=== PATIENT | female | born 1995 | race Two or more races ===

== ENCOUNTER 2017-10-13 19:04 | Emergency (ER) | payer OTHER ==
[2017-10-13 19:11] VITALS: RESP 16; TEMP 98.1
[2017-10-13 19:47] LABS: % IMMATURE GRANULYOCYTES 0.3 % (0.0-1.1); ABSOLUTE IMMATURE GRANULOCYTES 0.02 10^3/uL (0.00-0.10); ADD DIFF? NO; ADD MORPH? NO; ADD SCAN? NO; ATYPICAL LYMPHOCYTE FLAG 0 (0-99); FRAGMENT RBC FLAG 0 (0-99); HEMATOCRIT 38.7 % (38.0-47.0); HEMOGLOBIN 13.1 g/dL (12.6-16.3); LEFT SHIFT FLG 0 (0-99); LIPEMIA HEMOLYSIS FLAG 90 (0-99); MEAN CELL HEMOGLOBIN 27.9 pg (27.9-34.1); MEAN CELL HEMOGLOBIN CONCENTR. 33.9 g/dL (32.4-36.7); MEAN CELL VOLUME 82.3 fL (81.5-99.8); MEAN PLATELET VOLUME 9.7 fL (8.7-11.7); PLATELET CLUMPS FLAG 0 (0-99); PLATELET COUNT 386 10^3/uL (150-400); RED CELL DISTRIBUTION WIDTH 12.8 % (11.5-15.2)
[2017-10-13 20:00] LABS: ANION GAP 11 mEq/L (8-16); CALCIUM 9.8 mg/dL (8.5-10.4); CARBON DIOXIDE 24 mEq/l (22-31); CHLORIDE 103 mEq/L (97-110); CREATININE 0.7 mg/dL (0.6-1.0); GLOMERULAR FILTRATION RATE > 60; GLUCOSE 77 mg/dL (70-100); SODIUM 138 mEq/L (134-144)
[2017-10-13 20:10] LABS: COLOR YELLOW; LEUKOCYTE ESTERASE,URINE NEGATIVE (NEGATIVE); NITRITE,URINE NEGATIVE (NEGATIVE)
[2017-10-13 20:16] LABS: BACTERIA 1+ /hpf (NONE SEEN); MUCUS 3+ /lpf (NONE-1+)
--- NOTE | 2017-10-13 20:20 | EDPHY ---
H & P Stated Complaint: low back and low abd pain x 1 week, taking otc pain meds Time Seen by Provider: 10/13/17 19:16 HPI/ROS: Chief complaint: Low back pain History of present illness: 22-year-old female presents to the emergency department for low back pain. She reports she has had problems with low back pain for a number of years. Symptoms wax and wane in intensity. She has seen doctors previously and has been told that it was once her muscles and once a urinary tract infection. She states current pain and 4-5 days ago. She states she bent over and picked up a heavy bag. After than pain progressively worsened. Pain radiates towards the front of the abdomen. Worse with movement , better with rest. Denies associated signs or symptoms including no fevers, no urinary symptoms, no constipation diarrhea, no abnormal vaginal discomfort discharge, no neurologic symptoms such as saddle anesthesia, paresthesias, weakness or paralysis or bowel or bladder dysfunction. - Personal History LMP (Females 10-55): 1-7 Days Ago Current Tetanus Diphtheria and Acellular Pertussis (TDAP): Yes - Medical/Surgical History Other PMH: denies - Social History Smoking Status: Never smoked - Physical Exam Exam: General Appearance: Alert, nontoxic. Eyes: Pupils equal and round no injection. Respiratory: Chest is non tender, lungs are clear to auscultation. Cardiac: regular rate and rhythm Gastrointestinal: Abdomen is soft and non tender, no masses, bowel sounds normal. Musculoskeletal: Neck is supple and non tender. The spine is nontender to palpation along its entire length. No crepitus or bony deformity. Mild tenderness over the right lower lumbar paraspinal muscles. Extremities have full range of motion and are non tender. Skin: No rashes or lesions. Constitutional: Initial Vital Signs Temperature (C) 36.7 C 10/13/17 19:09 Heart Rate 94 10/13/17 19:09 Respiratory Rate 16 10/13/17 19:09 Blood Pressure 102/69 10/13/17 19:09 O2 Sat (%) 97 10/13/17 19:09 O2 Delivery Mode Room Air Allergies/Adverse Reactions: No Known Allergies Allergy (Unverified 10/13/17 19:07) Home Medications: Medication Instructions Recorded NK [No Known Home Meds] 10/13/17 Medical Decision Making ED Course/Re-evaluation: Patient seen under the supervision of my primary supervising physician Dr. Shy Mohr. Patient presents to the emergency department for low back pain radiating to her abdomen. She is nontoxic. Physical exam does reveal reproducible pain over the low back. Nonfocal neurologic exam. Blood studies unremarkable. Urinalysis likely contaminant, culture sent before starting antibiotics. I do believe this is a musculoskeletal problem given the nature with which it began and reproducible pain. I do not believe red flag risk factors exist at this time to suggest more significant pathology. Patient discharged home. Home care is discussed. Return precautions are given. Patient voiced understanding and agreement with plan. Differential Diagnosis: Included but not limited to lumbar sprain or strain, herniated intervertebral disc, urinary tract disease including stone or infection, unlikely cauda equina syndrome or spinal cord lesion - Data Points Laboratory Results: Laboratory Results 10/13/17 19:35 10/13/17 19:35 10/13/17 10/13/17 10/13/17 19:52 19:35 19:35 WBC RBC Hgb Hct MCV MCH MCHC RDW Plt Count MPV Neut % (Auto) Lymph % (Auto) Lane % (Auto) Eos % (Auto) Baso % (Auto) Nucleat RBC Rel Count Absolute Neuts (auto) Absolute Lymphs (auto) Absolute Monos (auto) Absolute Eos (auto) Absolute Basos (auto) Absolute Nucleated RBC Immature Gran % Immature Gran # Sodium 138 mEq/L mEq/L (134-144) Potassium 4.0 mEq/L mEq/L (3.5-5.2) Chloride 103 mEq/L mEq/L (97-110) Carbon Dioxide 24 mEq/l mEq/l (22-31) Anion Gap 11 mEq/L mEq/L (8-16) BUN 13 mg/dL mg/dL (7-23) Creatinine 0.7 mg/dL mg/dL (0.6-1.0) Estimated GFR > 60 Glucose 77 mg/dL mg/dL (70-100) Calcium 9.8 mg/dL mg/dL (8.5-10.4) Beta HCG, Qual NEGATIVE Urine Color YELLOW Urine Appearance HAZY Urine pH 5.0 (5.0-7.5) Ur Specific [place] 1.024 (1.002-1.030) Urine Protein NEGATIVE (NEGATIVE) Urine Ketones TRACE H (NEGATIVE) Urine Blood NEGATIVE (NEGATIVE) Urine Nitrate NEGATIVE (NEGATIVE) Urine Bilirubin NEGATIVE (NEGATIVE) Urine Urobilinogen NEGATIVE EU EU (0.2-1.0) Ur Leukocyte Esterase NEGATIVE (NEGATIVE) Urine RBC 1-3 /hpf /hpf (0-3) Urine WBC 3-5 /hpf H /hpf (0-3) Ur Epithelial Cells TRACE /lpf /lpf (NONE-1+) Urine Bacteria 1+ /hpf H /hpf (NONE SEEN) Urine Mucus 3+ /lpf H /lpf (NONE-1+) Urine Glucose NEGATIVE (NEGATIVE) 10/13/17 19:35 WBC 7.86 10^3/uL 10^3/uL (3.80-9.50) RBC 4.70 10^6/uL 10^6/uL (4.18-5.33) Hgb 13.1 g/dL g/dL (12.6-16.3) Hct 38.7 % % (38.0-47.0) MCV 82.3 fL fL (81.5-99.8) MCH 27.9 pg pg (27.9-34.1) MCHC 33.9 g/dL g/dL (32.4-36.7) RDW 12.8 % % (11.5-15.2) Plt Count 386 10^3/uL 10^3/uL (150-400) MPV 9.7 fL fL (8.7-11.7) Neut % (Auto) 68.1 % % (39.3-74.2) Lymph % (Auto) 24.3 % % (15.0-45.0) Lane % (Auto) 6.5 % % (4.5-13.0) Eos % (Auto) 0.0 % L % (0.6-7.6) Baso % (Auto) 0.8 % % (0.3-1.7) Nucleat RBC Rel Count 0.0 % % (0.0-0.2) Absolute Neuts (auto) 5.36 10^3/uL 10^3/uL (1.70-6.50) Absolute Lymphs (auto) 1.91 10^3/uL 10^3/uL (1.00-3.00) Absolute Monos (auto) 0.51 10^3/uL 10^3/uL (0.30-0.80) Absolute Eos (auto) 0.00 10^3/uL L 10^3/uL (0.03-0.40) Absolute Basos (auto) 0.06 10^3/uL 10^3/uL (0.02-0.10) Absolute Nucleated RBC 0.00 10^3/uL 10^3/uL (0-0.01) Immature Gran % 0.3 % % (0.0-1.1) Immature Gran # 0.02 10^3/uL 10^3/uL (0.00-0.10) Sodium Potassium Chloride Carbon Dioxide Anion Gap BUN Creatinine Estimated GFR Glucose Calcium Beta HCG, Qual Urine Color Urine Appearance Urine pH Ur Specific [place] Urine Protein Urine Ketones Urine Blood Urine Nitrate Urine Bilirubin Urine Urobilinogen Ur Leukocyte Esterase Urine RBC Urine WBC Ur Epithelial Cells Urine Bacteria Urine Mucus Urine Glucose Departure - Departure Disposition: Home, Routine, Self-Care Clinical Impression: Back pain Qualifiers: Back pain location: low back pain Chronicity: acute Back pain laterality: right Sciatica presence: without sciatica Qualified Code(s): M54.5 - Low back pain Condition: Good Instructions: Back Pain (ED) Additional Instructions: Follow-up with the critical access hospital for continued evaluation and care Use ibuprofen 600 mg 3 times a day for the next 2-3 days for pain control If symptoms worsen or new symptoms develop return to the emergency room for recheck Referrals: NONE *PRIMARY CARE P,. [Primary Care Provider] - As per Instructions [facility],. [Clinic] - As per Instructions
[2017-10-13] MEDS ORDERED: IBUPROFEN 600 MG TAB PO ONE (20:31)
[2017-10-13 21:03] VITALS: BP 107/70; PULSE 70; O2SAT 96
== END 2017-10-13 20:51 | disposition home or self-care (01) ==
DX: M54.5 Low back pain (principal)

== ENCOUNTER 2017-10-21 23:46 | Emergency (ER) | payer OTHER ==
[2017-10-21 23:51] VITALS: BP 124/75; PULSE 104; RESP 16; TEMP 98.2; O2SAT 97
--- NOTE | 2017-10-22 00:03 | EDPHY ---
H & P Time Seen by Provider: 10/21/17 23:57 HPI/ROS: CHIEF COMPLAINT: Left great toe pain HISTORY OF PRESENT ILLNESS: 22-year-old female arrives via private vehicle complaining of acute left great toe pain after she stubbed her toe this evening. Able to bear weight albeit with pain. She has nail Vietnamese on. No bleeding. No proximal pain. No paresthesia PHYSICAL EXAM (Prior to examination, patient consented to physical exam, hands were washed and my usual and customary physical exam procedures followed) 1) GENERAL: Well-developed, well-nourished, alert and oriented. Appears to be in no acute distress. 2) HEAD: Normocephalic 3) HEENT: sclera anicteric 4) LUNGS: Breathing comfortably. 5) SKIN: Intact no laceration 6) MUSCULOSKELETAL: Nail Vietnamese in place, removed revealing no subungual hematoma. Tender to palpation distal phalanx of the great toe. No shortening no malrotation. 7) NEUROLOGIC: Full sensation Smoking Status: Never smoked Constitutional: Initial Vital Signs Temperature (C) 36.8 C 10/21/17 23:48 Heart Rate 104 H 10/21/17 23:48 Respiratory Rate 16 10/21/17 23:48 Blood Pressure 124/75 H 10/21/17 23:48 O2 Sat (%) 97 10/21/17 23:48 O2 Delivery Mode Room Air Allergies/Adverse Reactions: No Known Allergies Allergy (Unverified 10/13/17 19:07) Home Medications: Medication Instructions Recorded NK [No Known Home Meds] 10/13/17 MDM/Departure - MDM Procedures: Procedure: Splint A postop shoe splint and ana tape splint were applied by ER automation engineering technician. After application of the splint I returned and re-examined the patient. The splint was adequately immobilizing the joint and distal to the splint the patient's circulation and sensation were intact. Patient shows no signs of compartment syndrome. Was given orthopedic precautions. - Depart Disposition: Home, Routine, Self-Care Clinical Impression: Injury of left great toe Qualifiers: Encounter type: initial encounter Qualified Code(s): S99.922A - Unspecified injury of left foot, initial encounter Condition: Good Instructions: Crush Injury (ED) Additional Instructions: Return to the ER immediately if you experience discoloration, have worsening pain, numbness, tingling, or any other symptoms that concern you. If you received x-rays in the emergency department today, be advised, that ligamentous , tendon, muscular, and other non-bony injury cannot be fully ruled out. Try to keep your affected extremity elevated above the level of your chest, and keep cold packs on the affected area, for the next 48 hours. Referrals: Carmel Thomas [Doctor of Podiatric Medicine] - 5-7 days, call for appt.
== END 2017-10-22 00:43 | disposition home or self-care (01) ==
DX: S99.922A Unspecified injury of left foot, initial encounter (principal); W22.8XXA Striking against or struck by other objects, initial encounter; Y99.8 Other external cause status

== ENCOUNTER 2018-05-24 09:41 | Emergency (ER) | payer OTHER ==
--- NOTE | 2018-05-24 10:37 | EDPHY ---
H & P Time Seen by Provider: 05/24/18 10:37 HPI/ROS: Chief complaint. Abdominal pain HPI. 22-year-old female with 3 day history of upper abdominal pain in both quadrants. No nausea or vomiting or diarrhea. Constipation. Pain is described as sharp without radiation to her back. It is worse after eating. Decreased urination and decreased bowel movements over the last few days. Currently having menstrual. No history of chronic abdominal problems or previous abdominal surgery. Maybe slight fever yesterday but not since. No chest discomfort or trouble breathing. ROS Constitutional. Fever yesterday Eyes. no problems with vision ENT. no sore throat, no nasal drainage Cardiovascular. no chest pain Respiratory. no shortness of breath, no cough Abdominal. Upper abdominal pain without nausea vomiting or diarrhea . no problems urinating MS. no calf pain/swelling, no neck/back pain, no joint pain Skin. no rash Lymph. no swollen glands Neuro. no headache, no dizziness, no difficulty walking or with speech Past Medical/Surgical History: Healthy Social History: Single, nonsmoker, no alcohol Smoking Status: Never smoked Physical Exam: General Appearance: Alert pleasant well-developed female mild distress vital signs are stable Eyes: Pupils equal and round no pallor or injection. ENT, Mouth: Mucous membranes are moist. Respiratory: There are no retractions, lungs are clear to auscultation. Cardiovascular: Regular rate and rhythm. Gastrointestinal: Abdomen is soft with tenderness in the upper abdomen bilaterally. No masses or organomegaly Neurological: Awake and alert, sensory and motor exams grossly normal. Skin: Warm and dry, no rashes. Musculoskeletal: Neck is supple nontender. Extremities symmetrical, full range of motion. Psychiatric: Patient is oriented X 3, there is no agitation. Constitutional: Initial Vital Signs Temperature (C) 36.6 C 05/24/18 09:53 Heart Rate 83 05/24/18 09:53 Respiratory Rate 16 05/24/18 09:53 Blood Pressure 104/63 05/24/18 09:53 O2 Sat (%) 97 05/24/18 09:53 O2 Delivery Mode Room Air Allergies/Adverse Reactions: No Known Allergies Allergy (Verified 05/24/18 09:52) Home Medications: Medication Instructions Recorded Cephalexin [Keflex (*)] 500 mg PO TID #21 cap 05/24/18 Medical Decision Making - Diagnostics Imaging Results: Imaging Impressions Abdomen Ultrasound 05/24/18 10:43 Impression: Normal study. Findings were discussed with DARNELL MAYS MD at 11:14 AM, on 05/24/2018. Ultrasound of gallbladder is normal. Reviewed by me and discussed with Procedures: IV normal saline ED Course/Re-evaluation: Re-evaluation 12:50 p.m.--patient and I discussed imaging and lab results. We discussed treatment plan including criteria for return importance of follow-up further evaluation. She expresses understanding and agreement Differential Diagnosis: I considered gastritis, pancreatitis, gallbladder disease, urinary tract infection, - Data Points Laboratory Results: Laboratory Results 05/24/18 11:26 05/24/18 11:26 05/24/18 05/24/18 05/24/18 11:50 11:26 11:26 WBC RBC Hgb Hct MCV MCH MCHC RDW Plt Count MPV Neut % (Auto) Lymph % (Auto) [place] % (Auto) Eos % (Auto) Baso % (Auto) Nucleat RBC Rel Count Absolute Neuts (auto) Absolute Lymphs (auto) Absolute Monos (auto) Absolute Eos (auto) Absolute Basos (auto) Absolute Nucleated RBC Immature Gran % Immature Gran # Sodium 139 mEq/L mEq/L (135-145) Potassium 4.1 mEq/L mEq/L (3.3-5.0) Chloride 104 mEq/L mEq/L (97-110) Carbon Dioxide 24 mEq/l mEq/l (22-31) Anion Gap 11 mEq/L mEq/L (8-16) BUN 13 mg/dL mg/dL (7-23) Creatinine 0.7 mg/dL mg/dL (0.6-1.0) Estimated GFR > 60 Glucose 81 mg/dL mg/dL (70-100) Calcium 9.6 mg/dL mg/dL (8.5-10.4) Total Bilirubin 0.8 mg/dL mg/dL (0.1-1.4) Conjugated Bilirubin 0.3 mg/dL mg/dL (0.0-0.5) Unconjugated Bilirubin 0.5 mg/dL mg/dL (0.0-1.1) AST 18 IU/L IU/L (14-46) ALT 30 IU/L IU/L (9-52) Alkaline Phosphatase 85 IU/L IU/L (38-126) Total Protein 7.7 g/dL g/dL (6.3-8.2) Albumin 4.3 g/dL g/dL (3.5-5.0) Lipase 66 IU/L IU/L (23-300) Beta HCG, Qual NEGATIVE Urine Color [place]EV[place] Urine Appearance HAZY Urine pH 6.0 (5.0-7.5) Ur Specific [place] 1.033 H (1.002-1.030) Urine Protein NEGATIVE (NEGATIVE) Urine Ketones TRACE H (NEGATIVE) Urine Blood 2+ H (NEGATIVE) Urine Nitrate NEGATIVE (NEGATIVE) Urine Bilirubin NEGATIVE (NEGATIVE) Urine Urobilinogen 4.0 EU H EU (0.2-1.0) Ur Leukocyte Esterase NEGATIVE (NEGATIVE) Urine RBC 25-50 /hpf H /hpf (0-3) Urine WBC 5-10 /hpf H /hpf (0-3) Ur Epithelial Cells TRACE /lpf /lpf (NONE-1+) Urine Mucus 4+ /lpf H /lpf (NONE-1+) Urine Glucose NEGATIVE (NEGATIVE) 05/24/18 11:26 WBC 13.95 10^3/uL H 10^3/uL (3.80-9.50) RBC 4.93 10^6/uL 10^6/uL (4.18-5.33) Hgb 13.3 g/dL g/dL (12.6-16.3) Hct 41.0 % % (38.0-47.0) MCV 83.2 fL fL (81.5-99.8) MCH 27.0 pg L pg (27.9-34.1) MCHC 32.4 g/dL g/dL (32.4-36.7) RDW 13.5 % % (11.5-15.2) Plt Count 391 10^3/uL 10^3/uL (150-400) MPV 10.1 fL fL (8.7-11.7) Neut % (Auto) 84.8 % H % (39.3-74.2) Lymph % (Auto) 10.0 % L % (15.0-45.0) [place] % (Auto) 4.6 % % (4.5-13.0) Eos % (Auto) 0.0 % L % (0.6-7.6) Baso % (Auto) 0.4 % % (0.3-1.7) Nucleat RBC Rel Count 0.0 % % (0.0-0.2) Absolute Neuts (auto) 11.83 10^3/uL H 10^3/uL (1.70-6.50) Absolute Lymphs (auto) 1.40 10^3/uL 10^3/uL (1.00-3.00) Absolute Monos (auto) 0.64 10^3/uL 10^3/uL (0.30-0.80) Absolute Eos (auto) 0.00 10^3/uL L 10^3/uL (0.03-0.40) Absolute Basos (auto) 0.05 10^3/uL 10^3/uL (0.02-0.10) Absolute Nucleated RBC 0.00 10^3/uL 10^3/uL (0-0.01) Immature Gran % 0.2 % % (0.0-1.1) Immature Gran # 0.03 10^3/uL 10^3/uL (0.00-0.10) Sodium Potassium Chloride Carbon Dioxide Anion Gap BUN Creatinine Estimated GFR Glucose Calcium Total Bilirubin Conjugated Bilirubin Unconjugated Bilirubin AST ALT Alkaline Phosphatase Total Protein Albumin Lipase Beta HCG, Qual Urine Color Urine Appearance Urine pH Ur Specific [place] Urine Protein Urine Ketones Urine Blood Urine Nitrate Urine Bilirubin Urine Urobilinogen Ur Leukocyte Esterase Urine RBC Urine WBC Ur Epithelial Cells Urine Mucus Urine Glucose Medications Given: Discontinued Medications Sodium Chloride (Ns) 1,000 mls @ 0 mls/hr IV EDNOW ONE; Wide Open PRN Reason: Protocol Stop: 05/24/18 10:44 Last Admin: 05/24/18 11:22 Dose: 1,000 mls Departure - Departure Disposition: Home, Routine, Self-Care Clinical Impression: Abdominal pain Qualifiers: Abdominal location: upper abdomen, unspecified Qualified Code(s): R10.10 - Upper abdominal pain, unspecified Urinary tract infection Qualifiers: Urinary tract infection type: site unspecified Hematuria presence: with hematuria Qualified Code(s): N39.0 - Urinary tract infection, site not specified ; R31.9 - Hematuria, unspecified; R31.9 - Hematuria, unspecified Condition: Good Instructions: Urinary Tract Infection in Women (ED) Additional Instructions: Increased you're fluids. Tylenol 1000 mg every 4-6 hours as needed for pain Cephalexin as antibiotic for urinary tract infection Return for worsening symptoms Recheck in 2 days if not improved Referrals: NONE *PRIMARY CARE P,. [Primary Care Provider] - As per Instructions Genet Meeks MD [Medical Doctor] - 2-3 days, if not improved Prescriptions: Cephalexin [Keflex (*)] 500 mg PO TID #21 cap
[2018-05-24] MEDS ORDERED: NS 1,000 ML IV ONE (10:43)
[2018-05-24 11:34] LABS: PLATELET COUNT 391 10^3/uL (150-400)
[2018-05-24 13:04] VITALS: BP 118/68
== END 2018-05-24 13:04 | disposition home or self-care (01) ==
DX: R10.10 Upper abdominal pain, unspecified (principal); N39.0 Urinary tract infection, site not specified; E86.9 Volume depletion, unspecified